=== PATIENT | female | born 1950 | race Two or more races ===

== ENCOUNTER 2017-02-02 21:05 | Emergency (ER) | payer MEDICAID ==
[2017-02-02] MEDS ORDERED: ACETAMINOPHEN 325 MG TABLET PO ONE (21:14)
[2017-02-02] MEDS ORDERED: RINGERS SOLUTION,LACTATED 1,000 ML IV ONE ×2 (21:14→21:38)
[2017-02-02] MEDS ORDERED: PIPERACILLIN/TAZOBACTAM 3.375 GM VIAL IV ONE (21:38)
--- NOTE | 2017-02-02 21:40 | ER Document Report ---
ED General - General Chief Complaint: Fever Stated Complaint: HEADACHE,ABDOMINAL PAIN Time Seen by Provider: 02/02/17 21:13 Notes: Patient is a 66-year-old female without past medical history, moved from the [place] 1 [place] ago, who presents with fever and diffuse body pain. History is somewhat limited as patient speaks only Italian and her son at the bedside is the foreign student adviser. A formal foreign student adviser was offered to the patient and declined. Per the patient, she has had diffuse body pain for the past 1 month with associated dysuria. The family became concerned today when she developed a fever. She went to a primary care doctor yesterday and had a TB test placed which has become indurated with an associated area of erythema around it. Patient states that since that time she feels that she has developed a generalized malaise and fever. She has no history of similar symptoms in the past. She has never had an active tuberculosis infection in the past. She denies any cough or respiratory symptoms. Denies any headache or neck pain. No Altered mental status. Nothing improves or worsens her symptoms. Past Medical History - General Information source: Patient - Social History Smoking Status: Never Smoker Frequency of alcohol use: None Drug Abuse: None Lives with: Family Family History: Reviewed & Not Pertinent Review of Systems - Review of Systems Notes: Constitutional: Positive for fever. HENT: Negative for sore throat. Eyes: Negative for visual changes. Cardiovascular: Negative for chest pain. Respiratory: Negative for shortness of breath. Gastrointestinal: Positive for abdominal pain Genitourinary: Positive for dysuria. Musculoskeletal: Negative for back pain. Skin: Positive for rash. Neurological: Negative for headaches, weakness or numbness. 10 point ROS negative except as marked above and in HPI. Physical Exam - Vital signs Vitals: Temp 99.5 F 02/02/17 21:19 Interpretation: Normal Notes: PHYSICAL EXAMINATION: GENERAL: Appears mildly ill but in no acute distress HEAD: Atraumatic, normocephalic. EYES: Pupils equal round and reactive to light, extraocular movements intact, sclera anicteric, conjunctiva are normal. ENT: nares patent, oropharynx clear without exudates. Moderately dry mucous membranes. NECK: Normal range of motion, supple without lymphadenopathy LUNGS: Breath sounds clear to auscultation bilaterally and equal. No wheezes rales or rhonchi. HEART: Regular tachycardia without murmurs ABDOMEN: Soft, nontender, normoactive bowel sounds. No guarding, no rebound. No masses appreciated. EXTREMITIES: Normal range of motion, no pitting or edema. No cyanosis. NEUROLOGICAL: No focal neurological deficits. Moves all extremities spontaneously and on command. PSYCH: Normal mood, normal affect. SKIN: Warm, Dry, normal turgor, there is a 1 x 2 cm area of necrotic tissue in the central right forearm with a surrounding area of erythema that covers almost the entirety of the right forearm with streaking erythema extending towards the elbow that does not spread towards the axilla Course - Re-evaluation Re-evalutation: 02/02/17 21:38 Patient is an ill-appearing 66-year-old woman who presents with fever, malaise, and generalized body pain. Patient had a TB skin test placed yesterday which is obviously positive on bedside examination. She is saturating 93% on room air although has apparently not had a cough. However, given that she was febrile by EMS to 102.5F, does have mild hypoxemia, and obvious positive TB test she will be immediately placed into an isolation room and and 95 masks will be mandated prior to entry into the room. I have relayed the importance of this to her son and the patient. On overall assessment patient is ill in appearance, diaphoretic, pale, tachypneic, tachycardic. Initial chest x-ray shows bibasilar atelectasis but no obvious upper lobe infiltrates to suggest an active tuberculosis. She does also have bilateral CVA tenderness and has noted dysuria for the past 1 month making pyelonephritis on differential. She has no focal abdominal pain. Will proceed with an beginning of 2 L of IV lactated Ringer's, begin empiric IV Zosyn, and continued reassess frequently 02/02/17 23:42 Initial laboratories are overall unremarkable. Chest x-ray has been read without evidence of active tuberculosis. I remain concerned as patient continues to have moderate tachycardia although maintains a normal blood pressure. Oxygen saturations at 95%. No acute distress however. Will await urinalysis results and if this does not demonstrate findings consistent with acute pyelonephritis to explain her presentation of sepsis, will proceed with CT of the chest to further evaluate for possible acute pneumonia versus tuberculosis. 02/03/17 02:08 Patient's vital signs have now normalized, heart rate 86, blood pressure within normal limits saturating 96-97% on room air. CT scan of the chest abdomen and pelvis obtained to evaluate for possible tuberculosis active infection the lungs are miliary tuberculosis are unremarkable without any evidence of acute infection. The remainder of patient's labs are broadly unremarkable, lactate normal, no leukocytosis. At this point the exact etiology of her initial fever is uncertain to me. I do not suspect an acute meningitis given the absence of any complaint of neck pain and contrary to prior triage note patient has denied headache to me. She has no nuchal rigidity on examination and I believe this would be an unlikely diagnosis in the setting of a normal white count, resolved tachycardia, and improved clinical appearance. I have discussed this at length with the patient and her son at the bedside. The only source of in a fever that can suspect is that perhaps the patient is actually developed a site of infection where the TB test was placed. There is streaking erythema that is actually moving from the PPD site up to past her elbow. This could also be a reactive fever from the positive tuberculin test. Will empirically start cephalexin to cover for possible strep spaced cellulitis. The patient will be following with her primary care doctor in the morning and will require an infectious disease referral. - Vital Signs Vital signs: Temp Pulse Resp BP Pulse Ox 99.5 F 17 115/73 95 02/02/17 21:19 02/03/17 02:46 02/03/17 02:46 02/03/17 02:46 - Laboratory Result Diagrams: 02/02/17 21:44 02/02/17 21:44 Laboratory results interpreted by me: 02/02/17 02/02/17 02/02/17 21:44 21:44 23:12 MCH 26.7 L VBG pH 7.44 H Urine Blood MODERATE H - Diagnostic Test Radiology reviewed: Image reviewed, Reports reviewed Radiology results interpreted by me: 02/03/17 02:24 Chest x-ray: No acute infiltrate or pneumothorax Critical Care Note - Critical Care Note Total time excluding time spent on procedures (mins): 36 Comments: Critical care time spent obtaining history from patient or surrogate, discussions with consultants, development of treatment plan with patient or surrogate, evaluation of patient's response to treatment, examination of patient , ordering and performing treatments and interventions, ordering and review of laboratory studies, re-evaluation of patient's condition, ordering and review of radiographic studies and review of old charts Discharge - Discharge Clinical Impression: Cellulitis of arm, left, Newly converted positive PPD test Fever Qualifiers: Fever type: unspecified Qualified Code(s): R50.9 - Fever, unspecified Condition: Good Disposition: HOME, SELF-CARE Additional Instructions: The rash is likely due to infection of your skin. You need to take the antibiotics as prescribed. Do not stop even if the rash goes away until you have completed all the antibiotics. The area of redness was traced out here in the emergency department with a marking pen. You need to return to emergency department if the redness spreads outside of this area by more than 2 cm in any direction. You should also return if you develop fevers with temperature greater than 101, persistent vomiting, worsening pain, or have any other symptoms that are concerning to you. Prescriptions: Cephalexin Monohydrate [Keflex 500 mg Capsule] 500 mg PO Q6H 7 Days #28 capsule Referrals: BROCK MARRERO MD [Primary Care Provider] - Follow up tomorrow
--- NOTE | 2017-02-02 21:43 | RADIOLOGY REPORT (SQ) ---
EXAM DESCRIPTION: CHEST SINGLE VIEW COMPLETED DATE/TIME: 02/02/2017 9:35 pm REASON FOR STUDY: fever COMPARISON: None. EXAM PARAMETERS: NUMBER OF VIEWS: One view. TECHNIQUE: Single frontal radiographic view of the chest acquired. RADIATION DOSE: NA LIMITATIONS: None. FINDINGS: LUNGS AND PLEURA: No opacities, masses or pneumothorax. No pleural effusion. MEDIASTINUM AND HILAR STRUCTURES: No masses. Contour normal. HEART AND VASCULAR STRUCTURES: Heart normal in size. Normal vasculature. BONES: No acute findings. HARDWARE: None in the chest. OTHER: No other significant finding. IMPRESSION: NO ACUTE RADIOGRAPHIC FINDING IN THE CHEST. TECHNICAL DOCUMENTATION: JOB ID: [id number]
[2017-02-02 21:59] LABS: ABSOLUTE BASOPHILS # (AUTO) 0.1 10^3/uL (0.0-0.2); ABSOLUTE EOSINOPHILS # (AUTO) 0.1 10^3/uL (0.0-0.6); ABSOLUTE LYMPHOCYTES (AUTO) 1.2 10^3/uL (0.5-4.7); ABSOLUTE MONOCYTES (AUTO) 0.5 10^3/uL (0.1-1.4); ABSOLUTE NEUT (AUTO) 6.2 10^3/uL (1.7-8.2); BASOPHILS % (AUTO) 0.8 % (0-2); HEMATOCRIT 37.3 % (36.0-47.0); HEMOGLOBIN 12.4 g/dL (12.0-15.5); HGB HCT DIFFERENCE -0.1; LYMPHOCYTES % (AUTO) 14.8 % (13-45); MEAN CORPUSCULAR HEMOGLOBIN 26.7 pg (27.0-33.4); MEAN CORPUSCULAR HGB CONC 33.3 g/dL (32.0-36.0); MEAN CORPUSCULAR VOLUME 80 fl (80-97); MONOCYTES % (AUTO) 6.3 % (3-13); RED BLOOD COUNT 4.64 10^6/uL (3.72-5.28); RED CELL DISTRIBUTION WIDTH 13.7 % (11.5-14.0); SEGMENTED NEUTROPHILS % (AUTO) 77.1 % (42-78); WHITE BLOOD COUNT 8.1 10^3/uL (4.0-10.5)
[2017-02-02 22:06] LABS: VENOUS BLOOD BASE EXCESS 0.1 mmol/L; VENOUS BLOOD HCO3 23.8 mmol/L (20-32); VENOUS BLOOD PCO2 35.8 mmHg (35-63); VENOUS BLOOD PH 7.44 (7.30-7.42)
[2017-02-02 22:20] LABS: ALANINE AMINOTRANSFERASE 25 U/L (9-52); ALKALINE PHOSPHATASE 110 U/L (38-126); ANION GAP 12 (5-19); ASPARTATE AMINO TRANSFERASE 21 U/L (14-36); BILIRUBIN,DIRECT 0.3 mg/dL (0.0-0.4); BILIRUBIN,TOTAL 0.6 mg/dL (0.2-1.3); BLOOD UREA NITROGEN 16 mg/dL (7-20); CALCIUM 9.2 mg/dL (8.4-10.2); CARBON DIOXIDE 22 mmol/L (22-30); CHLORIDE 106 mmol/L (98-107); GLUCOSE 110 mg/dL (75-110); POTASSIUM 3.7 mmol/L (3.6-5.0); SODIUM 139.6 mmol/L (137-145); TOTAL PROTEIN 7.2 g/dL (6.3-8.2)
[2017-02-02 23:46] LABS: APPEARANCE,URINE CLEAR; BILIRUBIN,URINE NEGATIVE (NEGATIVE); GLUCOSE, URINE NEGATIVE (NEGATIVE); KETONES,URINE NEGATIVE (NEGATIVE); LEUKOCYTE ESTERASE,URINE NEGATIVE (NEGATIVE); NITRITE,URINE NEGATIVE (NEGATIVE); PROTEIN,URINE NEGATIVE (NEGATIVE); URINE SPECIFIC GRAVITY 1.011; UROBILINOGEN,URINE NEGATIVE mg/dL (<2.0)
--- NOTE | 2017-02-03 01:38 | RADIOLOGY REPORT (SQ) ---
EXAM DESCRIPTION: CT CHEST WITH COMPLETED DATE/TIME: 02/03/2017 12:53 am REASON FOR STUDY: eval fever, positive TB test COMPARISON: None. TECHNIQUE: CT scan of the chest performed using helical scanning technique with dynamic intravenous contrast injection. Images reviewed with lung, soft tissue and bone windows. Reconstructed coronal and sagittal MPR images reviewed. All images stored on PACS. All CT scanners at this facility use dose modulation, iterative reconstruction, and/or weight based d osing when appropriate to reduce radiation dose to as low as reasonably achievable (ALARA). [facility]: Dose Right [facility]: CareDose [facility]: Dose Right [facility]: Teradose 4D [facility]: Tweetflow CONTRAST TYPE AND DOSE: contrast/concentration: Isovue 370.00 mg/ml; Total Contrast Delivered: 100.0 ml; Total Saline Delivered: 50.0 ml RENAL FUNCTION: Creatinine 0.6 RADIATION DOSE: . LIMITATIONS: None. FINDINGS: LUNGS AND PLEURA: No opacities, nodules, masses. No pneumothorax. No effusions. Small to moderate atelectasis or scar bilateral lung bases. HILAR AND MEDIASTINAL STRUCTURES: No identified masses or abnormal nodes. HEART AND VASCULAR STRUCTURES: No aneurysm or dissection. No central pulmonary emboli. No pericardi al effusion. HARDWARE: None in the chest. UPPER ABDOMEN: See separate report of the CT of the abdomen. THYROID AND OTHER SOFT TISSUES: No masses. No adenopathy. BONES: No significant finding. OTHER: No other significant finding. IMPRESSION: No acute cardiopulmonary findings. No CT evidence of active TB. TECHNICAL DOCUMENTATION: JOB ID: [id number] Quality ID # [id number]: Final reports with documentation of one or more dose reduction techniques (e.g., Au tomated exposure control, adjustment of the mA and/or kV according to patient size, use of iterative reconstruction technique) 2010 [employer]- All Rights Reserved
--- NOTE | 2017-02-03 01:46 | RADIOLOGY REPORT (SQ) ---
EXAM DESCRIPTION: CT ABD/PELVIS WITH IV ONLY COMPLETED DATE/TIME: 02/03/2017 12:53 am REASON FOR STUDY: fever, abdominal pain COMPARISON: None. TECHNIQUE: CT scan of the abdomen and pelvis performed using helical scanning technique with dynamic intravenous contrast injection. No oral contrast. Images reviewed with lung, soft tissue, and bone windows. Reconstructed coronal and sagittal MPR images reviewed. Delayed images for evaluation of the urinary system also acquired. All images stored on PACS. All CT scanners at this facility use dose modulation, iterative reconstruction, and/or weight based d osing when appropriate to reduce radiation dose to as low as reasonably achievable (ALARA). [facility]: Dose Right [facility]: CareDose [facility]: Dose Right [facility]: Teradose 4D [facility]: [employer] CONTRAST TYPE AND DOSE: 100 cc Isovue 370- low osmolar. RENAL FUNCTION: Creatinine 0.6 RADIATION DOSE: Up-to-date CT equipment and radiation dose reduction techniques were employed. CTDIv ol: 15.3 - 17.0 mGy. DLP: 1727 mGy-cm.. LIMITATIONS: None. FINDINGS: LOWER CHEST: See separate report of the CT of the chest. LIVER: Normal size. No masses. No dilated ducts. SPLEEN: Normal size. No focal lesions. PANCREAS: No masses. No significant calcifications. No adjacent inflammation or peripancreatic fluid collections. Pancreatic duct not dilated. GALLBLADDER: Surgically absent. ADRENAL GLANDS: No significant masses or asymmetry. RIGHT KIDNEY AND URETER: No solid masses. No significant calcifications. No hydronephrosis or hyd roureter. LEFT KIDNEY AND URETER: No solid masses. No significant calcifications. No hydronephrosis or hydr oureter. 1.7 cm likely benign cyst of the left kidney not definitively characterized. AORTA AND VESSELS: No aneurysm. No dissection. Renal arteries, SMA, celiac without stenosis. RETROPERITONEUM: No retroperitoneal adenopathy, hemorrhage or masses. BOWEL AND PERITONEAL CAVITY: No masses or inflammatory changes. No free fluid or peritoneal masses. APPENDIX: Normal. PELVIS: No mass. No free fluid. Normal bladder. ABDOMINAL WALL: 2.5 cm umbilical fat only herniation. [id number] disc desiccation. BONES: No significant or acute findings. OTHER: No other significant finding. IMPRESSION: NO ACUTE FINDING IN THE ABDOMEN OR PELVIS ON CT SCAN WITH IV CONTRAST. No evidence of a ctive TB. TECHNICAL DOCUMENTATION: JOB ID: [id number] Quality ID # [id number]: Final reports with documentation of one or more dose reduction techniques (e.g., Au tomated exposure control, adjustment of the mA and/or kV according to patient size, use of iterative reconstruction technique) 2010 [employer]- All Rights Reserved
[2017-02-03 02:54] VITALS: BP 115/73
== END 2017-02-03 02:52 | disposition home or self-care (01) ==
LOC: ER 21:05
DX: L03.114 Cellulitis of left upper limb (principal); R76.11 Nonspecific reaction to tuberculin skin test without active tuberculosis; J98.11 Atelectasis; R30.0 Dysuria; R10.9 Unspecified abdominal pain; R51 Headache; R00.0 Tachycardia, unspecified; R53.81 Other malaise; R09.02 Hypoxemia; R23.1 Pallor; R61 Generalized hyperhidrosis; R06.82 Tachypnea, not elsewhere classified
CPT/HCPCS: 99285; 96375; 96365; 36415; 87040; 87086; 85025; 80053; 81001; 82803; 83605; 71010; 71260; 74177; J7120; J2543